=== PATIENT | female | born 1945 | race Caucasian/White ===

== ENCOUNTER 2023-11-24 12:50 | Emergency (ER) | payer MEDICARE ==
[~2023-11-24] VITALS: Ht 162.6 cm; Wt 64.4 kg
[2023-11-24] MEDS ORDERED: HYDROCODONE/APAP 5/325MG TABLET ONE (13:50)
[2023-11-24] MEDS ORDERED: IBUP-1957 PO (13:53)
[2023-11-24] MEDS: HYDROCODONE/APAP 5/325MG TABLET PO ONE (13:53)
[2023-11-24 14:51] VITALS: BP 124/88; TEMP 98.7; O2SAT 99
== END 2023-11-24 14:51 | disposition home or self-care (01) ==
LOC: ER 12:53
DX: S82.64XA Nondisplaced fracture of lateral malleolus of right fibula, initial encounter for closed fracture (principal); S20.219A Contusion of unspecified front wall of thorax, initial encounter; Z60.2 Problems related to living alone; V49.9XXA Car occupant (driver) (passenger) injured in unspecified traffic accident, initial encounter; Y93.89 Activity, other specified; Y92.488 Other paved roadways as the place of occurrence of the external cause; Y99.8 Other external cause status
CPT/HCPCS: 71045-TC; 73610-TC